=== PATIENT | male | born 1990 | race Two or more races ===

== ENCOUNTER 2025-06-14 18:16 | Inpatient (IN) | payer OTHER ==
[~2025-06-14] VITALS: Ht 175.3 cm; Wt 68.0 kg
[2025-06-14] MEDS ORDERED: CHLORDIAZEPOXIDE HCL 25 MG CAPSULE ONE (18:35)
[2025-06-14] MEDS: CHLORDIAZEPOXIDE HCL 25 MG CAPSULE PO ONE (18:39)
[2025-06-14 19:37] LABS: *BILIRUBIN,URIN NEGATIVE (NEGATIVE); *BLOOD, URINE 2+ (NEGATIVE); *CLARITY,URINE CLEAR (CLEAR); *COLOR,URINE YELLOW (YELLOW); *KETONES,URINE 3+ (NEGATIVE); *PROTEIN,URINE 2+ (NEGATIVE); *UROBILINOGEN,URINE 0.2 E.U./dl (NORMAL); LEUKOCYTE ESTERASE ,URINE NEGATIVE (NEGATIVE); NITRITE, URINE NEGATIVE (NEGATIVE); UGLUCOSE NEGATIVE (NEGATIVE)
[2025-06-14 19:43] LABS: *AMPHETAMINE, URINE NEGATIVE (NEGATIVE); *BARBITURATE, URINE NEGATIVE (NEGATIVE); *BENZODIAZEPINE, URINE POSITIVE (NEGATIVE); *CANNABINOID, URINE NEGATIVE (NEGATIVE); *COCCAINE, URINE NEGATIVE (NEGATIVE); *OPIATE, URINE NEGATIVE (NEGATIVE); *PHENCYCLIDINE SCREEN,URINE NEGATIVE (NEGATIVE); FENTANYL, URINE NEGATIVE (NEGATIVE)
[2025-06-14 19:48] LABS: SQUAMOUS EPITHELIAL CELL,UR FEW /HPF (NONE SEEN)
[2025-06-14 19:48] LABS: PLATELET COUNT (AUTO) 422 K/uL (152-348); RED BLOOD CELL COUNT(AUTO) 5.58 MIL/uL (4.06-5.63); RED CELL DISTRIBUTION WIDTH 15.7 % (12.1-16.2); WHITE BLOOD COUNT (AUTO) 12.6 K/uL (3.6-10.2)
[2025-06-14 19:57] LABS: CREATININE 1.1 mg/dL (0.6-1.3); SODIUM SERUM 142 mmol/L (136-145); UREA NITROGEN, BLOOD 17 mg/dL (7-18)
[2025-06-14 20:02] LABS: ASPARTATE AMINOTRANSFERASE 61 U/L (15-37); TOTAL PROTEIN, SERUM 8.6 g/dL (6.4-8.2)
[2025-06-14] MEDS: IV NORMAL SALINE 1000 ML BAG IV ONE ×2 (20:05→22:30)
[2025-06-14 20:06] LABS: ETHANOL 427.0 MG/DL (0-10)
[2025-06-14] MEDS ORDERED: LORAZEPAM 2 MG/1 ML VIAL ONE ×2 (20:15→21:09)
[2025-06-14] MEDS: LORAZEPAM 2 MG/1 ML VIAL IV ONE ×2 (20:17→21:11)
[2025-06-14] MEDS: IV D5/ 0.9% NACL 1,000 ML IV ONE (20:17)
[2025-06-14 22:15] VITALS: BP 122/82
[2025-06-14] MEDS: NICOTINE 14 MG/24HR PATCH TD SCH (22:24)
[2025-06-14] MEDS ORDERED: ACETAMINOPHEN 325 MG TABLET PO PRN (23:00)
[2025-06-14] MEDS ORDERED: REMEDY ESSENTIAL ZINC PASTE 113 GM TP PRN (23:00)
[2025-06-14] MEDS ORDERED: ONDANSETRON 4 MG/2 ML VIAL IV PRN (23:00)
[2025-06-14] MEDS ORDERED: MAGNESIUM HYDROXIDE 30 ML LIQUID UDC PO PRN (23:00)
[2025-06-14] MEDS ORDERED: IV D5 1/2 NS 1000 ML 1,000 ML IV PRN (23:00)
[2025-06-15] VITALS (7 sets, daily range): BP systolic 105–123; BP diastolic 42–78; TEMP 98–98.8; O2SAT 95–100
[2025-06-15] MEDS: IV NS 1000 ML 1,000 ML IV PRN (01:30)
[2025-06-15] MEDS: ENOXAPARIN SODIUM 40 MG/0.4 ML DISP.SYRIN SQ SCH (01:31)
[2025-06-15 01:45] LABS: ABG BASE EXCESS -11.0 mmol/L (-2.0-3.0); ABG HCO3 14.2 mmol/L (21.0-28.0); ABG PCO2 30.3 mmHg (35.0-48.0); ABG PH 7.288 (7.350-7.450); ABG PO2 85.4 mmHg (83.0-108.0); ABG SITE RIGHT BRACHIAL; ABG TOTAL HEMOGLOBIN 15.3 G/dL (13.5-17.5); AaDO2 95.5 mmHg; FIO2 21.0 %
[2025-06-15] MEDS: LORAZEPAM 2 MG/1 ML VIAL IV ONE ×2 (02:04→14:40)
[2025-06-15] MEDS ORDERED: THIAMINE HCL 200 MG/2 ML VIAL ONE (03:41)
[2025-06-15] MEDS: THIAMINE HCL 200 MG/2 ML VIAL IV ONE (04:20)
[2025-06-15 07:20] LABS: PLATELET COUNT (AUTO) 312 K/uL (152-348); RED BLOOD CELL COUNT(AUTO) 4.39 MIL/uL (4.06-5.63); RED CELL DISTRIBUTION WIDTH 15.4 % (12.1-16.2); WHITE BLOOD COUNT (AUTO) 8.2 K/uL (3.6-10.2)
[2025-06-15 07:39] LABS: CREATININE 0.8 mg/dL (0.6-1.3); SODIUM SERUM 143.0 mmol/L (136-145); UREA NITROGEN, BLOOD 10.0 mg/dL (7-18)
[2025-06-15] MEDS: CHLORDIAZEPOXIDE HCL 25 MG CAPSULE PO ONE (08:45)
[2025-06-15] MEDS ORDERED: PRAZ1CAP5 PO (10:19)
[2025-06-15] MEDS ORDERED: GABA600T12 PO (10:20)
[2025-06-15] MEDS ORDERED: HYDR-3895 PO (10:20)
[2025-06-15] MEDS ORDERED: QUET25TA36 PO (10:21)
[2025-06-15] MEDS ORDERED: ESCI5TAB PO (10:21)
[2025-06-15] MEDS ORDERED: TRAZ300T2 PO (10:22)
[2025-06-15] MEDS ORDERED: [UNRECOGNIZED DRUG - OTHER] PO (10:23)
[2025-06-15] MEDS ORDERED: [UNRECOGNIZED DRUG - OTHER] PO (10:23)
[2025-06-15] MEDS ORDERED: MILK175C5 PO (10:24)
[2025-06-15] MEDS ORDERED: CYAN100T44 PO (10:24)
[2025-06-15] MEDS ORDERED: [UNRECOGNIZED DRUG - OTHER] PO (10:25)
[2025-06-15] MEDS ORDERED: OMEG1CAP40 PO (10:26)
[2025-06-15] MEDS ORDERED: [UNRECOGNIZED DRUG - CODE] PO (10:26)
[2025-06-15] MEDS ORDERED: TURMERIC OTC PO (10:27)
[2025-06-15] MEDS ORDERED: THIA100T74 PO (10:27)
[2025-06-15] MEDS: LORAZEPAM 2 MG/1 ML VIAL IV PRN (11:20)
[2025-06-15] MEDS: PHENOBARBITAL 32.4 MG TABLET PO ONE (14:41)
[2025-06-15] MEDS ORDERED: ONDA4VIA23 IV (14:52)
[2025-06-15] MEDS ORDERED: ENOX40DI SQ (14:52)
[2025-06-15] MEDS ORDERED: MULT-594 PO (14:52)
[2025-06-15] MEDS ORDERED: THIA100V2 IJ (14:52)
[2025-06-15] MEDS ORDERED: RING500I4 IV (14:52)
[2025-06-15] MEDS ORDERED: PHEN32.46 PO (14:52)
[2025-06-15] MEDS ORDERED: FOLI1TAB27 PO (14:52)
[2025-06-15] MEDS ORDERED: ACET325T53 PO (14:52)
[2025-06-15] MEDS: DEXTROSE 5% IV ONE (15:08)
[2025-06-15] MEDS: THIAMINE HCL IV ONE (15:08)
[2025-06-15] MEDS: IV LACTATED RINGERS SOLUTION 1,000 ML IV SCH (15:39)
[2025-06-15] MEDS: MAGNESIUM SULFATE/D5W 100 ML IV SCH (15:44)
[2025-06-15] MEDS: PHENOBARBITAL 32.4 MG TABLET PO SCH (18:05)
[2025-06-15] MEDS ORDERED: THIAMINE HCL INJ 100 MG in IV DEXTROSE 5% 50 ML IV SCH (23:00)
[2025-06-16 00:03] VITALS: BP 123/78; TEMP 97.6; O2SAT 96
[2025-06-16] MEDS ORDERED: THIAMINE HCL INJ 100 MG in IV DEXTROSE 5% 50 ML IV SCH (15:00)
== END 2025-06-16 00:15 | disposition short-term general hospital (02) | DRG 640 ==
LOC: ER 19:01 → TELE3 23:06
PROVIDERS: ADMIT Internal Medicine; ATTEND Nurse Practitioner Acute Care
DX: E87.29 Other acidosis (principal); G92.9 Unspecified toxic encephalopathy; F10.239 Alcohol dependence with withdrawal, unspecified; M62.82 Rhabdomyolysis; E86.0 Dehydration; F10.229 Alcohol dependence with intoxication, unspecified; Y90.8 Blood alcohol level of 240 mg/100 ml or more; R00.0 Tachycardia, unspecified; F43.10 Post-traumatic stress disorder, unspecified; R31.29 Other microscopic hematuria; Z86.72 Personal history of thrombophlebitis; D72.829 Elevated white blood cell count, unspecified; D75.839 Thrombocytosis, unspecified; R80.9 Proteinuria, unspecified; R74.01 Elevation of levels of liver transaminase levels; F41.9 Anxiety disorder, unspecified; Z87.891 Personal history of nicotine dependence
CPT/HCPCS: 36415; 36600; 71045; 82803; 83735; 84100; 84443; 84484; 85025; G0378; G0480; J1650; J2060; J3411; J3475; J7040; J7042; J7120